=== PATIENT | male | born 1965 | race African-American/Black ===

== ENCOUNTER 2016-11-12 03:37 | Emergency (ER) | payer OTHER ==
[~2016-11-12] VITALS: Ht 177.8 cm; Wt 104.6 kg
[~2016-11-12 03:37] MED LIST: FLONASE16 G1 BOTH NARES; LOVASTATIN20 MG PO; MOTRIN600 MG PO; MOTRIN800 MG PO; MUCINEX DM ER1 EACH PO
[2016-11-12 04:23] LABS: HEMATOCRIT 42.3 % (38.0-50.0); MCH 29.4 PG (29.0-34.0); MCHC 33.8 G/DL (30.0-36.0); MEAN PLAT.VOLUME 9.7 uM^3 (9.0-12.4); PLATELET COUNT 247 K/uL (156-360); RBC DIS.WIDTH-CV 12.3 % (11.8-14.6); RBC DIS.WIDTH-SD 39.3 % (39-53); RED BLOOD COUNT 4.86 M/uL (4.00-5.50); WHITE BLOOD COUNT 7.9 K/uL (4.1-10.2)
[2016-11-12 04:33] LABS: CHLORIDE 108 mEq/L (99-109); POTASSIUM 3.9 mEq/L (3.7-5.4); SODIUM 137 mEq/L (136-147)
[2016-11-12 04:35] LABS: GLUCOSE 142 mg/dL (70-99)
[2016-11-12 04:37] LABS: ANION GAP 10 MEQ/L (2-14); TOTAL BILIRUBIN 0.5 mg/dL (0.0-1.0)
[2016-11-12 04:39] LABS: ALKALINE PHOSPHATASE 74 IU/L (3-129); GFR ESTIMATE (CALCULATED) > 59 mL/min/
[2016-11-12 04:40] LABS: UREA NITROGEN (BUN) 13 mg/dL (9-23)
[2016-11-12 04:42] LABS: LIPASE 51 U/L (1.0-51.0)
[2016-11-12 04:49] LABS: TROP-I INTERPRETATION NEGATIVE; TROPONIN-I < 0.01 ng/mL (0.0-0.30)
[2016-11-12] MEDS ORDERED: PEPCID20 MG PO (05:53)
[2016-11-12 06:09] VITALS: BP 120/79
== END 2016-11-12 06:10 | disposition home or self-care (01) ==
LOC: EME 03:37
PROVIDERS: Emergency Medicine
DX: R06.6 Hiccough (principal); R07.89 Other chest pain; E78.5 Hyperlipidemia, unspecified
CPT/HCPCS: 71010; 80053; 83690; 84484; 85027; 93005; 99281; 99285; J0780; J7030

== ENCOUNTER 2017-01-13 01:22 | Emergency (ER) | payer OTHER ==
[~2017-01-13] VITALS: Ht 180.3 cm; Wt 103.5 kg
[~2017-01-13 01:22] MED LIST changes: +PEPCID20 MG PO
[2017-01-13 02:05] LABS: EOSINOPHIL COUNT 0.3 K/uL (0-0.3); HEMATOCRIT 41.3 % (38.0-50.0); IMMATURE GRANULOCYTE (%) 0.5 % (0.0-0.7); INSTRUMENT ABS NEUTROPHIL CT 4.1 K/uL; LYMPHOCYTE COUNT 1.3 K/uL (1.0-2.8); MCH 29.4 PG (29.0-34.0); MCHC 34.6 G/DL (30.0-36.0); MEAN PLAT.VOLUME 9.2 uM^3 (9.0-12.4); MONOCYTE (%) 7.1 % (3-12); MONOCYTE COUNT 0.4 K/uL (0-0.8); NEUTROPHIL (%) 66.4 % (45-76); NEUTROPHIL COUNT 4.1 K/uL (1.8-6.4); PLATELET COUNT 203 K/uL (156-360); RBC DIS.WIDTH-CV 13.2 % (11.8-14.6); RBC DIS.WIDTH-SD 41.2 % (39-53); RED BLOOD COUNT 4.86 M/uL (4.00-5.50); WHITE BLOOD COUNT 6.2 K/uL (4.1-10.2)
[2017-01-13 02:07] LABS: CHLORIDE 109 mEq/L (99-109); POTASSIUM 4.1 mEq/L (3.7-5.4); SODIUM 141 mEq/L (136-147)
[2017-01-13 02:09] LABS: GLUCOSE 146 mg/dL (70-99)
[2017-01-13 02:11] LABS: ANION GAP 6 MEQ/L (2-14); TOTAL BILIRUBIN 0.4 mg/dL (0.0-1.0)
[2017-01-13 02:13] LABS: ALKALINE PHOSPHATASE 51 IU/L (3-129); GFR ESTIMATE (CALCULATED) > 59 mL/min/
[2017-01-13 02:14] LABS: UREA NITROGEN (BUN) 11 mg/dL (9-23)
[2017-01-13 02:22] LABS: TROP-I INTERPRETATION NEGATIVE; TROPONIN-I < 0.01 ng/mL (0.0-0.30)
[2017-01-13] MEDS ORDERED: REGLAN10 MG PO (04:58)
[2017-01-13 05:12] VITALS: BP 141/92
== END 2017-01-13 05:17 | disposition home or self-care (01) ==
LOC: EME 01:22
PROVIDERS: Emergency Medicine
DX: R06.6 Hiccough (principal); E78.5 Hyperlipidemia, unspecified
CPT/HCPCS: 71020; 74020; 80053; 84484; 85025; 93005; 99281; 99285

== ENCOUNTER 2017-04-29 08:48 | Emergency (ER) | payer OTHER ==
[~2017-04-29] VITALS: Ht 177.8 cm; Wt 100.3 kg
[~2017-04-29 08:48] MED LIST changes: +REGLAN10 MG PO
[2017-04-29] MEDS ORDERED: NAPROSYN500 MG PO (09:39)
[2017-04-29 09:50] VITALS: BP 125/80
== END 2017-04-29 09:50 | disposition home or self-care (01) ==
LOC: EME 08:48
DX: S70.12XA Contusion of left thigh, initial encounter (principal); V18.0XXA Pedal cycle driver injured in noncollision transport accident in nontraffic accident, initial encounter; Y93.55 Activity, bike riding; E78.5 Hyperlipidemia, unspecified
CPT/HCPCS: 73552; 99281; 99283